=== PATIENT | male | born 1975 | race African-American/Black ===

== ENCOUNTER 2017-06-14 18:51 | Emergency (ER) | payer BC, OTHER ==
[~2017-06-14] VITALS: Ht 193 cm; Wt 125.0 kg
[~2017-06-14 18:51] MED LIST: NAPR500 PO
[2017-06-14 19:02] VITALS: BP 178/83; PULSE 86; RESP 18; TEMP 99.7; O2SAT 99
[2017-06-14] MEDS ORDERED: INDO75CA3 PO (19:29)
[2017-06-14] MEDS ORDERED: COLC1CAP3 PO (19:29)
[2017-06-14] MEDS ORDERED: KETOROLAC TROMETHAMINE 60 MG/2 ML (IM) VIAL IM ONE (19:30)
[2017-06-14] MEDS ORDERED: DEXAMETHASONE SOD PHOS 20 MG/5 ML VIAL IM ONE (19:30)
--- NOTE | 2017-06-14 19:39 | PD ---
HPI Chief Complaint: Pain: Acute or Chronic Time Seen by Provider: 19:22 Travel History International Travel<30 days: No Contact w/Intl Traveler<30days: No Traveled to known affect area: No History of Present Illness HPI 42-year-old black male presents emergency department with a 12 hour history of right ankle pain. He denies any history of injury. He states that he went to bed and a normal set of health last evening but awoke with severe right ankle pain. It is painful and swollen. He has stated that eye doctor has told him that he may have had gout in the past. He does admit to eating steak now for nearly a week and a rope. He also drinks alcohol. No trauma. No fever chills. No alleviating symptoms. Exacerbated by walking. PFSH Past Medical History Narrative Medical Possible gout Diminished Hearing: No Gout: Yes Immunizations Current: Yes Tetanus Vaccination: < 5 Years Influenza Vaccination: No Past Surgical History Surgical History: No Previous Surgery Social History Alcohol Use: Yes (OCC) Tobacco Use: Yes (/ PPD) Substance Use: No Allergies-Medications (Allergen,Severity, Reaction): Coded Allergies: No Known Allergies (Verified Adverse Reaction, Unknown, 06/14/17) Reported Meds & Prescriptions Reported Meds & Active Scripts Active Colchicine 0.6 Mg Cap 0.6 Mg PO BID 5 Days Indomethacin ER (Indomethacin) 75 Mg Caper 75 Mg PO BID 10 Days Take with food, milk, or antacids to decrease stomach adverse effects. Review of Systems Except as stated in HPI: all other systems reviewed are Neg Physical Exam Narrative GENERAL: This is a well-nourished, well-developed patient, in no apparent distress. SKIN: No rashes, ecchymoses or lesions. Warm and dry. HEAD: Atraumatic. Normocephalic. EYES: PERRL, EOMI, no discharge or injection. No scleral icterus. EARS: Clear NOSE: Nasal turbinates appear normal. THROAT: Mucosa pink and moist. Airway patent. NECK: Trachea midline. supple, moves head freely. LUNGS: Clear to auscultation. CV: Regular in rhythm. ABDOMEN: Soft nontender. EXT: No clubbing cyanosis. Examination of the right lower extremity reveals pain and swelling diffusely in the ankle. There is no erythema or warmth. No pain in the foot, knee or hip. He has intact sensation with good distal pulses. Data Data Last Documented VS Vital Signs Date Time Temp Pulse Resp B/P (MAP) Pulse Ox O2 Delivery O2 Flow Rate FiO2 06/14/17 19:02 99.7 86 18 178/83 (114) 99 Orders Orders Dexamethasone Inj (Decadron Inj) (06/14/17 19:30) Ketorolac Inj (Toradol Inj) (06/14/17 19:30) Crutches (06/14/17 19:26) Ed Discharge Order (06/14/17 19:26) MDM Medical Decision Making Medical Screen Exam Complete: Yes Emergency Medical Condition: Yes Medical Record Reviewed: Yes Differential Diagnosis Differential diagnoses: Sprain, strain, gout Narrative Course This is inflammatory gout. Patient given Toradol 60 mg IM and Decadron 10 mg IM Diagnosis Primary Impression: Acute gout Qualified Codes: M10.9 - Gout, unspecified Patient Instructions: General Instructions Additional Instructions: Rest. Elevation. Crutches No weight-bearing and then progress to weight-bearing as tolerated. Medications as directed Follow-up with an orthopedist or your doctor in one week. Return to the ER if any problems Med/Other Pt SpecificInfo: Prescription(s) given Scripts Colchicine (Colchicine) 0.6 Mg Cap 0.6 MG PO BID for Gout for 5 Days, #10 CAP 0 Refills Prov: Fran Bosch MD 06/14/17 Indomethacin ER (Indomethacin ER) 75 Mg Caper 75 MG PO BID for 10 Days, #20 CAP 0 Refills Take with food, milk, or antacids to decrease stomach adverse effects. Prov: Fran Bosch MD 06/14/17 Disposition: 01 DISCHARGE HOME Condition: Stable Murali Umana Jun 14, 2017 19:38
== END 2017-06-14 20:12 | disposition home or self-care (01) ==
LOC: NEPD 18:51
DX: M10.9 Gout, unspecified (principal); F17.200 Nicotine dependence, unspecified, uncomplicated
CPT/HCPCS: 96372; 99284; E0113; J1100; J1885